=== PATIENT | male | born 1990 | race Hispanic/Latino ===

== ENCOUNTER 2018-04-07 09:17 | Emergency (ER) | payer OTHER ==
[2018-04-07 09:24] VITALS: BMI 24.3
[2018-04-07] MEDS: Clindamycin 600mg/50ml NS 600 MG/50 ML BAG IVPB ONE ×2 (09:25→10:00)
[2018-04-07] MEDS ORDERED: Tdap Vaccine 0.5 ml Vial (10-64 yrs) IM ONE ×2 (09:37→09:59)
--- NOTE | 2018-04-07 09:40 | ED PDOC ---
Upper Extremity Pain/Injury Time Seen by Provider: 04/07/18 09:30 History Per: Patient Onset/Duration Of Symptoms: Hrs (1) Current Symptoms Are (Timing): Still Present Quality: Aching Severity: Mild Additional Complaint(s): Crush injury with heavy equipment, injured left middle finger proximal to nail. Pt states that nail lifted up at time of injury. Past Medical History Vital Signs: Last Vital Signs Temp 98.5 F 04/07/18 09:24 Pulse 54 L 04/07/18 09:24 Resp 20 04/07/18 09:24 BP 115/71 04/07/18 09:24 Pulse Ox 100 04/07/18 09:24 - Medical History PMH: No Chronic Diseases - Family History Family History: States: Unknown Family Hx - Home Medications Home Medications: Ambulatory Orders Medication Instructions Recorded Clindamycin [Cleocin] 300 mg PO Q8 #30 cap 04/07/18 traMADol [Ultram] 50 mg PO Q8 #10 tab 04/07/18 - Allergies Allergies/Adverse Reactions: Allergies Allergy/AdvReac Type Severity Reaction Status Date / Time No Known Allergies Allergy Verified 04/07/18 09:36 Review of Systems Musculoskeletal: Positive for: Hand Pain Neurological: Negative for: Weakness, Numbness Physical Exam - Physical Exam Appears: Positive for: Non-toxic, No Acute Distress Skin: Positive for: Normal Color, Warm, DRY Extremity: Positive for: Other (Left middle finger, distal phalanx extensor surface. Partial avulsion of skin extends under nail. Able to flex and extend. No motor or sensiory deficit.) - ECG O2 Sat by Pulse Oximetry: 100 Medical Decision Making Medical Decision Making: Discussed with hand surgeon Dr. Mendoza, will see in office now. Disposition - Clinical Impression Clinical Impression: Finger laceration, Open fracture of tuft of distal phalanx of finger - Patient ED Disposition Is Patient to be Admitted: No Counseled Patient/Family Regarding: Studies Performed, Diagnosis, Need For Followup, Rx Given - Disposition Referrals: Suzie Mendoza MD [Staff Provider] - Disposition: Routine/Home Disposition Time: 10:45 Condition: FAIR Prescriptions: Clindamycin [Cleocin] 300 mg PO Q8 #30 cap traMADol [Ultram] 50 mg PO Q8 #10 tab Instructions: Finger Fracture, Common Finger Injuries, Laceration Repair
[2018-04-07] MEDS ORDERED: Lidocaine 1% Inj (20ml) IJ ONE (09:52)
[2018-04-07] MEDS ORDERED: Lidocaine 1% MPF (30 ml) Inj ONE (09:58)
[2018-04-07] MEDS ORDERED: Clindamycin 600mg/50ml NS 600 MG/50 ML BAG IVPB ONE (09:58)
[2018-04-07] MEDS ORDERED: Lidocaine 1% MPF (30 ml) Inj INJ ONE (11:15)
[2018-04-07 12:08] VITALS: BP 118/76; PULSE 60; RESP 18; TEMP 97.8; O2SAT 99
--- NOTE | 2018-04-07 12:31 | RAD ---
PROCEDURE: Left middle finger radiographs. HISTORY: trauma COMPARISON: None. TECHNIQUE: AP radiograph of the left hand, as well as spot oblique and lateral images of left middle finger were obtained. FINDINGS: LEFT MIDDLE FINGER: Crush injury, distal phalangeal fracture. Remainder of the left hand (as seen on the AP view) is grossly unremarkable. JOINTS: Normal. SOFT TISSUES: Soft tissue swelling attests to the acuity of the fracture. No visulaized radiopaque/visualized foreign body. OTHER FINDINGS: None. IMPRESSION: Acute, comminuted distal tuft fracture.
== END 2018-04-07 11:00 | disposition home or self-care (01) ==
LOC: H.ER 09:17
DX: S62.603B Fracture of unspecified phalanx of left middle finger, initial encounter for open fracture (principal); W23.0XXA Caught, crushed, jammed, or pinched between moving objects, initial encounter; Y92.89 Other specified places as the place of occurrence of the external cause